=== PATIENT | male | born 1995 | race Caucasian/White ===

== ENCOUNTER 2019-07-18 19:44 | Emergency (ER) | payer MEDICAID ==
[~2019-07-18] VITALS: Ht 175.3 cm; Wt 79.8 kg
[2019-07-18 19:49] VITALS: Ht 175.3 cm; Wt 79.8 kg
[2019-07-18 21:01] VITALS: BP 142/93
== END 2019-07-18 21:01 | disposition home or self-care (01) ==
LOC: ED 19:44
DX: R05 Cough (principal); R21 Rash and other nonspecific skin eruption; J02.9 Acute pharyngitis, unspecified
CPT/HCPCS: Q0092